=== PATIENT | female | born 1995 | race Caucasian/White ===

== ENCOUNTER → 2023-01-23 | Outpatient (CLI) | payer OTHER ==
[~2023-01-23] MED LIST: AMOXICILLIN500 MG PO; AUGMENTIN 500 M1 TAB PO; KEFLEX500 MG PO; MOTRIN800 MG PO; PRENATAL 1 PLUS1 TA3 PO; PRENATAL1 TA1 PO; TYLENOL W/CODEI1 TA2 PO
[2023-01-23 14:33] LABS: BASO % 0.9 % (0.0-1.0); EOS # 0.1 10*3/uL (0.0-0.4); EOS % 1.4 % (1.0-4.0); HEMATOCRIT 40.1 % (37.0-47.0); LYMPH # 1.5 10*3/uL (1.3-4.4); MEAN CORPUSCULAR HGB 33.1 pg (27.0-31.0); MEAN CORPUSCULAR HGB CONC 33.4 g/dl (33.0-37.0); MONO # 0.4 10*3/uL (0.1-1.0); NEUT # 2.4 10*3/uL (2.3-7.9); NEUT % 54.5 % (47.0-73.0); PLATELET COUNT AUTOMATED 178 10*3/uL (130-400); RED BLOOD COUNT 4.05 10*6/uL (4.10-5.10); RED CELL DISTRI WIDTH 12.9 % (0-14.5); WHITE BLOOD COUNT 4.4 10*3/uL (4.8-10.8)
[2023-01-23 14:36] LABS: BILIRUBIN Negative (Negative); BLOOD Negative (Negative); CLARITY Clear (Clear); COLOR Yellow (Yellow); GLUCOSE Negative (Negative); KETONE Negative (Negative); LEUKO ESTERASE Trace (Negative); NITRITE Negative (Negative); SPECIFIC GRAVITY 1.015 (1.001-1.030); UROBILINOGEN 0.2 E.U./dl (0.0-1.0)
[2023-01-23 14:54] LABS: BACTERIA 1+; CALCIUM OXALATE CRYSTALS 1+; MUCOUS 1+
[2023-01-23 15:05] LABS: ALKALINE PHOSPHATASE 68 U/L (46-116); BUN 10 mg/dl (9-23); CHLORIDE 103 mmol/L (98-107); POTASSIUM 3.8 mmol/L (3.4-5.1); SGPT/ALT 34 U/L (10-49); THYROID STIM HORMONE (HS) 1.293 uIU/ml (0.550-4.780); TOTAL PROTEIN 7.8 gm/dL (6.0-8.0)
[2023-01-24 08:08] LABS: THYROID PEROXIDASE (TPO) AB 11 IU/mL (0-34)
[2023-01-26 16:07] LABS: THYROGLOBULIN ANTIBODY <1.0 IU/mL (0.0-0.9)
== END | disposition home or self-care (01) ==
LOC: LAB 13:59
PROVIDERS: ATTEND Otolaryngology
DX: R00.2 Palpitations (principal); R73.01 Impaired fasting glucose; R63.4 Abnormal weight loss